=== PATIENT | female | born 1965 | race African-American/Black ===

== ENCOUNTER 2023-06-06 18:34 | Emergency (ER) | payer OTHER ==
[~2023-06-06] VITALS: Ht 167.6 cm; Wt 86.3 kg
[2023-06-06 18:34] VITALS: BP 156/85; PULSE 138
[2023-06-06] MEDS ORDERED: ACETAMINOPHEN 325 MG TAB PO ONE (19:15)
[2023-06-06 19:48] LABS: Basophils # (auto) 0 10 ^3/uL (0-0.2); Basophils % (auto) 0.1 % (0.0-2.0); Eosinophils # (auto) 0 10 ^3/uL (0-0.8); Eosinophils % (auto) 0.1 % (0.0-7.0); Hematocrit 41.2 % (36.0-46.0); Hemoglobin 13.7 g/dL (12.2-16.2); Lymphocytes # (auto) 0.5 10 ^3/uL (0.4-5.4); Mean Corpuscular Hemoglobin 33.2 pg (28.0-32.0); Mean Corpuscular Hgb Conc. 33.2 g/dL (32.0-36.0); Mean Corpuscular Volume 99.9 fL (80.0-100.0); Monocytes # (auto) 0.4 10 ^3/uL (0-1.3); Monocytes % (auto) 3.8 % (0.0-12.0); Neutrophils # (auto) 10.7 10 ^3/uL (1.6-8.6); Red Blood Cells 4.12 10^6/uL (4.0-5.20); Red Cell Distribution Width 12.7 % (11.8-14.3); White Blood Cell 11.7 10^3/uL (4.4-10.8)
[2023-06-06 20:08] LABS: Chloride 102 mmol/L (98-107); Potassium 3.8 mmol/L (3.5-5.1); Sodium 137 mmol/L (136-145)
[2023-06-06 20:09] LABS: Anion Gap 11 (5-15); Calcium 10.1 mg/dL (8.5-10.1); Carbon Dioxide 24 mmol/L (20-30)
[2023-06-06 20:14] LABS: Blood Urea Nitrogen 10 mg/dL (9-23); Glucose 139 mg/dL (74-106)
[2023-06-06 20:58] VITALS: RESP 22; O2SAT 96
[2023-06-06] MEDS ORDERED: ALBUTEROL SULF 2.5 MG/0.5ML(0.5%) NEB SOLN NEB ONE (21:00)
[2023-06-06] MEDS ORDERED: DexAMETHasone SOD PHOS 10MG/1ML VIAL INJ IM ONE (21:00)
[2023-06-06] MEDS ORDERED: IPRATROPIUM BROM 0.5 MG/2.5ML INH SOL NEB ONE (21:00)
[2023-06-06 21:06] VITALS: TEMP 99.7
[2023-06-06 21:55] LABS: Rapid Influenza A Negative (Negative); Rapid Influenza B Negative (Negative)
[2023-06-06 21:57] LABS: COVID19 ANTIGEN SOFIA FIA POSITIVE (NEGATIVE)
[2023-06-07] MEDS ORDERED: AZITTAB PO (00:01)
[2023-06-07] MEDS ORDERED: ALBU108A5 IN (00:01)
[2023-06-07] MEDS ORDERED: BENZ200C64 PO (00:01)
[2023-06-07] MEDS ORDERED: DEX4T PO (00:02)
== END 2023-06-07 01:17 | disposition home or self-care (01) ==
LOC: ER 18:34
DX: U07.1 COVID-19 (principal); J20.9 Acute bronchitis, unspecified; R07.89 Other chest pain; R06.02 Shortness of breath
CPT/HCPCS: 36415; 71045; 80048; 84484; 85025; 87426; 87804; 94640; 96372; 99284; J1100; J7644

== ENCOUNTER 2024-06-06 10:06 | Emergency (ER) | payer MEDICAID, OTHER ==
[~2024-06-06] VITALS: Ht 165.1 cm; Wt 85.7 kg
[~2024-06-06 10:06] MED LIST: ALBU108A5 IN; AZITTAB PO; BENZ200C64 PO; DEX4T PO
--- NOTE | 2024-06-06 10:38 | ED.PDOC ---
History of Present Illness HPI Comments A 58 YEAR OLD FEMALE PRESENTS TO THE ED WITH CHIEF COMPLAINT OF N/V/D. PATIENT REPORTS THAT SHE HAS BEEN EXPERIENCING NAUSEA WITH ASSOCIATED VOMITING AND DIARRHEA SINCE LAST NIGHT. PATIENT DENIES ANY FEVER, CHILLS, COUGH, CONGESTION, HEADACHE, DIZZINESS, SOB, CHEST PAIN, ABD PAIN AND OTHER COMPLAINTS. NO OTHER SYMPTOMS REPORTED AT THIS TIME OF CARE. Chief Complaint: Nausea/Vomiting Time Seen by MD: 10:40 Reviewed Notes: Nurses Notes, Medications, Allergies Allergies: Coded Allergies: No Known Drug Allergy (Verified Allergy, Unknown, 06/06/23) Home Meds Active Scripts Dexamethasone (Decadron) 4 Mg Tb, 1 TAB PO BID for 5 Days, #10 TAB Start tomorrow with food Prov:RICHGALIA Q COARSE WIRE DRAWER 06/07/23 Benzonatate (Benzonatate) 200 Mg Cap, 1 CAP PO TID, #30 CAP As needed for cough Prov:RICHGALIA Q COARSE WIRE DRAWER 06/07/23 Albuterol Sulfate (Albuterol Sulfate Hfa) 108 Mcg/Act Aer, 1 PUFF IN Q4HPRN PRN, #1 AER As needed for shortness of breath or wheezing Prov:VILLANUEVAGALIA Q COARSE WIRE DRAWER 06/07/23 Azithromycin (Zithromax Z-Laci) 250 Mg Tab, 1 TAB PO DAILY for 5 Days, #6 TAB 2 tablets today then 1 tablet start tomorrow for 4 days Prov:SCOTT VILLANUEVA Q COARSE WIRE DRAWER 06/07/23 Information Source: Patient Mode of Arrival: Ambulatory Severity: Moderate Timing: Hours Duration: Since onset Prehospital treatment: None Medication Refill: For: Other (NAUSEA, VOMITING AND DIARRHEA ) Past Medical History PAST MEDICAL HISTORY: Cancer Surgical History (Other): MASTECTOMY MANAGER HAIR History: Denies all MANAGER HAIR Hx Family History Family History: Reviewed,noncontributory to illness Social History Smoker: Non-Smoker Alcohol: Denies ETOH Use Drugs: Denies Drug Use Lives In: Home Constitutional: denies: chills, diaphoresis, fatigue, fever, malaise, sweats, weakness, others EENTM: denies: blurred vision, double vision, ear bleeding, ear discharge, ear drainage, ear pain, ear ringing, eye pain, eye redness, hearing loss, mouth pain, mouth swelling, nasal discharge, nose bleeding, nose congestion, nose pain, photophobia, tearing, throat pain, throat swelling, voice changes, others Respiratory: denies: hemoptysis, orthopnea, SOB at rest, shortness of breath, SOB with excertion, stridor, wheezing, others Cardiovascular: denies: chest pain, dizzy spells, diaphoresis, Dyspnea on exertion, edema, irregular heart beat, left arm pain, lightheadedness, palpitations, PND, syncope, others Gastrointestinal: reports: diarrhea, nausea, vomiting; denies: abdomen distended, abdominal pain, blood streaked bowels, constipated, dysphagia, difficulty swallowing, hematemesis, melena, poor appetite, poor fluid intake, rectal bleeding, rectal pain, others Genitourinary: denies: abnormal vagina bleeding, burning, dyspareunia, dysuria, flank pain, frequency, hematuria, incontinence, pain, , vagina discharge, urgency, others Neurological: denies: dizziness, fainting, headache, left sided numbness, left sided weakness, numbness, paresthesia, pre-existing deficit, right sided numbness, right sided weakness, seizure, speech problems, tingling, tremors, weakness, others Musculoskeletal: denies: back pain, gout, joint pain, joint swelling, muscle pa in, muscle stiffness, neck pain, others Integumetry: denies: bruises, change in color, change in hair/nails, dryness, laceration, lesions, lumps, rash, wounds, others Allergic/Immunocompromised: denies: Difficulty Healing, Frequent Infections, Hives, Itching, others Hematologic/Lymphatic: denies: anemia, blood clots, easy bleeding, easy bruising, swollen glands, others Endocrine: denies: excessive hunger, excessive sweating, excessive thirst, excessive urination, flushing, intolerance to cold, intolerance to heat, unexplained weight gain, unexplained weight loss, others Psychiatric: denies: anxiety, bipolar disorder, depression, hopeless, panic disorder, schizophrenia, sleepless, suicidal, others All Other Systems: Reviewed and Negative Physical Exam General Appearance: No Apparent Distress, Normal HEENT: Normal ENT Inspection, PERRL/EOMI, Pharyngeal Erythema, TMs Normal Neck: Full Range of Motion, Non-Tender, Normal, Normal Inspection Respiratory: Chest Non-Tender, Lungs Clear, No Accessory Muscle Use, No Respiratory Distress, Normal Breath Sounds Cardiovascular: No Edema, No JVD, No Murmur, No Gallop, Normal Peripheral Pulses, Regular Rate/Rhythm Breast Exam: Deferred Gastrointestinal: No Organomegaly, Non Tender, No Pulsatile Mass, Normal Bowel Sounds, Soft Genitalia: Deferred Pelvic: Deferred Rectal: Deferred Extremities: No calf tenderness, Normal capillary refill, Normal inspection, Normal range of motion, Non-tender, No pedal edema Musculoskeletal : Apperance: Normal Neurologic: Alert, lorry weigher II-XII nml as Tested, No Motor Deficits, Normal Affect, Normal Mood, No Sensory Deficits Cerebellar Function: Normal Reflexes: Normal Skin: Dry, Normal Color, Warm Peripheral Pulses: 2+ carotid (R), 2+ carotid (L) Lymphatic: No Adenopathy Was a procedure done? Was a procedure done?: No Differential Dx Considerations may include: NAUSEA, VOMITING AND DIARRHEA, VIRAL SYNDROME X-Ray, Labs, Meds, VS Vital Signs Date Time Temp Pulse Resp B/P (MAP) Pulse Ox O2 Delivery O2 Flow Rate FiO2 06/06/24 10:47 108 17 96 Room Air 06/06/24 10:47 98.5 108 17 133/77 (95) 96 98.5 06/06/24 10:23 98.5 108 17 133/77 (95) 96 Lab Test 06/06/24 10:25 06/06/24 10:24 Range/Units Urine Color Light-orange Yellow Urine Clarity Ex.turbid Clear Urine pH 5.5 5.0-9.0 Urine Specific [place] 1.030 1.001-1.035 Urine Protein Trace H Negative Urine Ketones Negative Negative Urine Blood Negative Negative /uL Urine Nitrite Negative Negative Urine Bilirubin Negative Negative Urine Urobilinogen Normal Negative mg/dL Urine Leukocyte Esterase Trace Negative /uL Urine RBC 6 0 - 4 /hpf Urine WBC 8 0 - 5 /hpf Urine Squamous Epithelial Cells Mod <5 /hpf Urine Bacteria Few H None Seen /hpf Urine Mucus Few None Seen Urine Glucose Normal Normal mg/dL White Blood Count 6.5 4.4-10.8 10^3/uL Red Blood Count 4.07 4.0-5.20 10^6/uL Hemoglobin 13.6 12.2-16.2 g/dL Hematocrit 40.4 36.0-46.0 % Mean Corpuscular Volume 99.3 80.0-100.0 fL Mean Corpuscular Hemoglobin 33.3 H 28.0-32.0 pg Mean Corpuscular Hemoglobin Concent 33.5 32.0-36.0 g/dL Red Cell Distribution Width 12.5 11.8-14.3 % Platelet Count 233 140-450 10^3/uL Mean Platelet Volume 9.2 6.9-10.8 fL Neutrophils (%) (Auto) 78.4 37.0-80.0 % Lymphocytes (%) (Auto) 17.3 10.0-50.0 % Monocytes (%) (Auto) 3.7 0.0-12.0 % Eosinophils (%) (Auto) 0.5 0.0-7.0 % Basophils (%) (Auto) 0.1 0.0-2.0 % Neutrophils # (Auto) 5.1 1.6-8.6 10 ^3/uL Lymphocytes # (Auto) 1.1 0.4-5.4 10 ^3/uL Monocytes # (Auto) 0.2 0-1.3 10 ^3/uL Eosinophils # (Auto) 0 0-0.8 10 ^3/uL Basophils # (Auto) 0 0-0.2 10 ^3/uL Nucleated Red Blood Cells 0.0 % Sodium Level 137 136-145 mmol/L Potassium Level 3.9 3.5-5.1 mmol/L Chloride Level 106 98-107 mmol/L Carbon Dioxide Level 23 20-31 mmol/L Anion Gap 8 5-15 Blood Urea Nitrogen 10 9-23 mg/dL Creatinine 0.89 0.550-1.02 mg/dL Glomerular Filtration Rate Calc 74 >90 mL/min BUN/Creatinine Ratio 11.2 10.0-20.0 Serum Glucose 121 H 74-106 mg/dL Calcium Level 10.5 H 8.7-10.4 mg/dL Current Medications Medications (Trade) Dose Ordered Sig/Jermaine Route Start Time Stop Time Status Last Admin Sodium Chloride 1,000 ml @ 1,000 mls/hr Q1H ONCE IV 06/06/24 11:00 06/06/24 11:59 06/06/24 11:04 Ondansetron HCl (Zofran) 4 mg ONCE ONCE IV 06/06/24 11:00 06/06/24 11:01 DC 06/06/24 11:00 X-Ray, Labs, Meds, VS Comment EXTERNAL MEDICAL RECORDS REVIEWED: 06/06/23 FOR COVID-19 INDEPENDENT HISTORIANS: [NONE] SOCIAL DETERMINANTS OF HEALTH: [NONE] LABS ORDERED: CBC, BMP, UA, COVID, FLU REVIEWED AND INTERPRETED RESULTS: NONE IMAGING ORDERED: NONE TREATMENTS ORDERED: 0.9 NS 1L AND ZOFRAN 4MG IVP PROCEDURES PERFORMED: NONE CRITICAL CARE TIME: NONE I HAVE DISCUSSED THE PATIENT WITH THE ATTENDING PHYSICIAN DR. ABARCA AND HE AGREES WITH THE PATIENT'S PLAN OF CARE AND DISPOSITION. GIVEN THE HISTORY AND PRESENT ILLNESS OF THE PATIENT, AFTER REVIEWING LABS, IMAGING, AND COURSE OF TREATMENT ADMINISTERED DURING THEIR ED VISIT, THERE IS LOW SUSPICION FOR RED FLAG FINDINGS. BASED ON HISTORY OF PRESENT ILLNESS, AND PHYSICAL EXAM, PATIENT WILL BE DISCHARGED HOME. DISCUSSED PLAN FOR DISCHARGE HOME WITH RX []. MEDICATION WARNINGS GIVEN. SHARED DECISION MAKING: DISCUSSED WITH PATIENT THAT THEIR WORKUP WAS NORMAL. PATIENT INSTRUCTED TO FOLLOW UP WITH PRIMARY CARE PROVIDER IN 1-2 DAYS FOR RE- EVALUATION OF SYMPTOMS. PATIENT VERBALIZES UNDERSTANDING TO RETURN TO ED FOR NEW OR WORSENING SYMPTOMS OR IF FOLLOW UP WITH PCP CANNOT BE OBTAINED. PATIENT FEELS COMFORTABLE GOING HOME AT THIS TIME. ALL QUESTIONS ADDRESSED AT TIME OF D ISCHARGE. Time of 1ST Reevaluation: 11:52 Reevaluation 1ST: Improved Patient Education/Counseling: Diagnosis, Treatment, Need For Follow Up Family Education/Counseling: Diagnosis, Treatment, No Family Present Medical Screening: No EMC Exist At This Time Departure 1 Departure Time of Disposition: 12:00 Impression: Primary Impression: Nausea vomiting and diarrhea Disposition: 01 HOME / SELF CARE / HOMELESS Condition: Stable Additional Instructions: FOLLOW-UP WITH PCP IN 1 TO 2 DAYS. TAKE MEDICATIONS PRESCRIBED. RETURN TO ED FOR ANY NEW OR WORSENING SYMPTOMS. e-Prescriptions Ondansetron Odt 4MG Tab (ZOFRAN PO) 4 Mg Tb 4 MG PO BID, #14 TAB ODT TAB-DISSOLVE IN MOUTH, THEN SWALLOW Prov: GREGOR GRAHAM 06/06/24 Discharged With: Self Critical Care Note Critical Care Time?: No Stability Stability form required: No Heart Score Heart Score: Heart Score Response (Comments) Value History N/A 0 EKG N/A 0 Age N/A 0 Risk Factors N/A 0 Troponin N/A 0 Total 0 I personally scribed for GREGOR GRAHAM ([email or web address]) on 06/06/24 at 10:38. Electronically submitted by Armand Rodriguez ([email or web address]). I personally scribed for GREGOR GRAHAM ([email or web address]) on 06/06/24 at 10:43. Electronically submitted by Armand Rodriguez ([email or web address]). I personally scribed for GREGOR GRAHAM ([email or web address]) on 06/06/24 at 11:22. Electronically submitted by Armand Rodriguez ([email or web address]). GREGOR GRAHAM Jun 06, 2024 10:38
[2024-06-06 10:47] VITALS: BP 133/77; PULSE 108; RESP 17; TEMP 98.5; O2SAT 96
[2024-06-06 10:55] LABS: Basophils # (auto) 0 10 ^3/uL (0-0.2); Basophils % (auto) 0.1 % (0.0-2.0); Eosinophils # (auto) 0 10 ^3/uL (0-0.8); Eosinophils % (auto) 0.5 % (0.0-7.0); Hematocrit 40.4 % (36.0-46.0); Hemoglobin 13.6 g/dL (12.2-16.2); Lymphocytes # (auto) 1.1 10 ^3/uL (0.4-5.4); Lymphocytes % (auto) 17.3 % (10.0-50.0); Mean Corpuscular Hemoglobin 33.3 pg (28.0-32.0); Mean Corpuscular Hgb Conc. 33.5 g/dL (32.0-36.0); Mean Corpuscular Volume 99.3 fL (80.0-100.0); Monocytes # (auto) 0.2 10 ^3/uL (0-1.3); Monocytes % (auto) 3.7 % (0.0-12.0); Neutrophils # (auto) 5.1 10 ^3/uL (1.6-8.6); Neutrophils % (auto) 78.4 % (37.0-80.0); Platelet Count (auto) 233 10^3/uL (140-450); Red Blood Cells 4.07 10^6/uL (4.0-5.20); Red Cell Distribution Width 12.5 % (11.8-14.3); White Blood Cell 6.5 10^3/uL (4.4-10.8)
[2024-06-06] MEDS: ONDANSETRON HCL 4 MG/2 ML VIAL IV ONE (11:00)
[2024-06-06 11:01] LABS: Urine Bacteria FEW /hpf (None Seen); Urine Blood Negative /uL (Negative); Urine Clarity Ex.Turbid (Clear); Urine Color Light-Orange (Yellow); Urine Mucus FEW (None Seen); Urine Protein, UAD TRACE (Negative); Urine Squamous Epithelial Cell MOD /hpf (<5); Urine Urobilinogen Normal (Negative); Urine WBC 8 /hpf (0 - 5); Urine pH 5.5 (5.0-9.0)
[2024-06-06] MEDS: SODIUM CHLORIDE 0.9% 1,000 ML IV ONE (11:04)
[2024-06-06 11:06] LABS: Chloride 106 mmol/L (98-107); Potassium 3.9 mmol/L (3.5-5.1); Sodium 137 mmol/L (136-145)
[2024-06-06 11:07] LABS: Anion Gap 8 (5-15); Carbon Dioxide 23 mmol/L (20-31)
[2024-06-06 11:12] LABS: BUN/Creatinine Ratio 11.2 (10.0-20.0); Blood Urea Nitrogen 10 mg/dL (9-23)
[2024-06-06 11:13] LABS: Calcium 10.5 mg/dL (8.7-10.4); Glucose 121 mg/dL (74-106)
[2024-06-06] MEDS ORDERED: ZOFR4T PO (11:55)
== END 2024-06-06 12:11 | disposition home or self-care (01) ==
LOC: ER 10:06
DX: R11.2 Nausea with vomiting, unspecified (principal); R19.7 Diarrhea, unspecified; Z79.52 Long term (current) use of systemic steroids; Z85.9 Personal history of malignant neoplasm, unspecified; Z98.890 Other specified postprocedural states; Z79.899 Other long term (current) drug therapy
CPT/HCPCS: 36415; 80048; 81001; 85025; 96361; 96374; 99283; J2405; J7030